=== PATIENT | female | born 1975 | race African-American/Black ===

== ENCOUNTER 2016-10-10 08:41 | Emergency (ER) | payer MEDICAID ==
[~2016-10-10] VITALS: Ht 162.6 cm; Wt 72.5 kg
[~2016-10-10 08:41] MED LIST: CLIN150 PO; LORTA5 PO; MMW SWISH-SWAL
[2016-10-10 08:44] VITALS: BP 121/80; PULSE 91; RESP 15; TEMP 99; O2SAT 99
[2016-10-10] MEDS ORDERED: AMOX500C PO (09:36)
[2016-10-10] MEDS ORDERED: IBUP800T23 PO (09:36)
--- NOTE | 2016-10-10 09:40 | PD ---
HPI Chief Complaint: Oral / Dental Pain or Problem Time Seen by Provider: 09:34 Travel History International Travel<30 days: No Contact w/Intl Traveler<30days: No Traveled to known affect area: No History of Present Illness HPI 41-year-old female presents to the emergency Department with complaint of sore throat 2 weeks and left lower dental pain 1 week. Denies fever, chills, nausea, vomiting. Denies cough, ear pain, nasal congestion. Denies lump in throat, difficulty swallowing, unusual drooling. Denies facial erythema, edema. Reports sore throat is worse at night and better throughout the day. Has taken Advil PM for symptom relief. Has not taken any other medications or tried any other treatments to alleviate her symptoms. Allergies to codeine. No other modifying factors or associated signs and symptoms. PFSH Past Medical History Cardiovascular Problems: Yes (HTN) Diminished Hearing: No LMP: 10/10/2016 : 5 Para: 2 Miscarriage: 3 : 3 Social History Alcohol Use: No Tobacco Use: No Substance Use: No Allergies-Medications (Allergen,Severity, Reaction): Coded Allergies: Codeine (Verified Adverse Reaction, Mild, VOMITING, 10/10/16) Reported Meds & Prescriptions Reported Meds & Active Scripts Active Ibuprofen 800 Mg Tab 800 Mg PO Q6HR PRN Amoxicillin 500 Mg Cap 500 Mg PO BID 10 Days Magic Mouthwash-Diphenhy Formula (Lidocaine/Diphenhydr/Alum/Mg/Simeth) Ml 5 Ml SWISH-SWAL EVERY 2 HOURS PRN MAGIC MOUTHWASH CONTAINS 1/3 VISCOUS LIDOCAINE, 1/3 MAALOX, AND 1/3 BENADRYL. Cleocin (Clindamycin HCl) 150 Mg Cap 300 Mg PO Q6 7 Days [place] 5-325 mg (Hydrocodone-Acetaminophen 5-325 mg) 5 mg/325 mg Tab 1 Tab PO Q6H PRN Review of Systems Except as stated in HPI: all other systems reviewed are Neg Physical Exam Narrative GENERAL: Well-nourished, well-developed female patient, in no acute distress; afebrile, nontoxic-appearing SKIN: Warm and dry. No rash. HEAD: Atraumatic. Normocephalic. No facial erythema, edema, tenderness on palpation. EYES: Pupils equal and round at 3 mm with brisk reaction. No scleral icterus. No injection or drainage. PERRLA. ENT: Mucosa pink and moist. No erythema or exudates. No uvular edema. No uvular , palatal, or tonsillar deviation. Airway patent. EARS: Bilateral pinnae and external canals appear within normal limits. Bilateral tympanic membranes without erythema, dullness or perforation. MOUTH: Mucous membranes moist, no lesions, tongue and gums appear normal. Left lower tooth #19 with tenderness on palpation; no dental caries noted; surrounding gingiva is without erythema, edema, drainage. No obvious abscess noted. NECK: Trachea midline. No lymphadenopathy. CARDIOVASCULAR: Regular rate. RESPIRATORY: No accessory muscle use. GASTROINTESTINAL: Rounded. MUSCULOSKELETAL: No obvious deformities. No clubbing. No cyanosis. No edema. NEUROLOGICAL: Awake and alert. Oriented 3. No obvious cranial nerve deficits. Motor grossly within normal limits. Normal speech. Moves all extremities. 5/5 strength to all extremities. PSYCHIATRIC: Appropriate mood and affect; insight and judgment normal. Data Data Last Documented VS Vital Signs Date Time Temp Pulse Resp B/P Pulse Ox O2 Delivery O2 Flow Rate FiO2 10/10/16 08:44 99.0 91 15 121/80 99 MDM Medical Decision Making Medical Screen Exam Complete: Yes Emergency Medical Condition: Yes Medical Record Reviewed: Yes Differential Diagnosis Viral pharyngitis, sore throat, dry throat, dentalgia, dental abscess; less likely peritonsillar abscess Narrative Course 41-year-old female with dentalgia to tooth #19 and sore throat 2 weeks. Oropharynx is unremarkable. Patient is afebrile and nontoxic-appearing. She denies fever, chills, nausea, vomiting. Denies lip throat, difficulty swallowing, unusual drooling. Emergency dental information sheet provided. Amoxicillin, ibuprofen prescribed for home. Instructed patient to follow up with dentist. Patient verbalizes understanding and agreement with treatment plan. Patient is medically cleared and stable for discharge. Discussed reasons to return to the emergency department. Instructed patient to follow up with primary care provider. Patient agrees with treatment plan. The patients vital signs are stable and the patient is stable for outpatient follow-up and treatment. Patient discharged home, stable and in no acute distress. Diagnosis Primary Impression: Dentalgia Additional Impression: Sore throat Referrals: Dentist Primary Care Physician Patient Instructions: Dental Abscess (ED), Dental Caries (ED), General Instructions, Toothache (ED) Departure Forms: Tests/Procedures, Work Release Enter return to work date: Oct 11, 2016 Additional Instructions: Complete full course of antibiotics Ibuprofen as directed and as needed to reduce pain and inflammation Warm compresses to the affected area Follow-up with dentist Follow-up with primary care provider Return to emergency department immediately with worsening of symptoms Take Antibiotics as prescribed and complete full course of antibiotics Get plenty of sleep/rest Rest your voice Drink plenty of fluids to prevent dehydration Use warm saltwater gargles to soothe throat pain Use an air humidifier/turn off ceiling fans Use throat lozenges as needed for sore throat Use ibuprofen or acetaminophen as needed to relieve pain and fever Follow-up with your primary care provider within 2-4 days Return immediately to the emergency department with worsening of symptoms Med/Other Pt SpecificInfo: Prescription(s) given Scripts Ibuprofen 800 Mg [id number] Mg PO Q6HR PRN (PAIN) #30 TAB Ref 0 Prov:Za Bustamante 10/10/16 Amoxicillin 500 Mg [id number] Mg PO BID 10 Days Ref 0 Prov:Za Bustamante 10/10/16 Disposition: 01 DISCHARGE HOME Condition: Stable Za Bustamante Oct 10, 2016 09:40
== END 2016-10-10 09:58 | disposition home or self-care (01) ==
LOC: NEPK 08:41
DX: K08.89 Other specified disorders of teeth and supporting structures (principal); J02.9 Acute pharyngitis, unspecified; I10 Essential (primary) hypertension
CPT/HCPCS: 99282

== ENCOUNTER 2017-04-06 10:48 | Emergency (ER) | payer MEDICAID ==
[~2017-04-06] VITALS: Ht 162.6 cm; Wt 76.0 kg
[~2017-04-06 10:48] MED LIST changes: +AMOX500C PO; +IBUP800T23 PO
[2017-04-06 10:52] VITALS: BP 135/84; PULSE 92; RESP 16; TEMP 98.8; O2SAT 99
[2017-04-06] MEDS ORDERED: AMOX500C PO (11:30)
[2017-04-06] MEDS ORDERED: IBUP800T23 PO (11:30)
[2017-04-06] MEDS ORDERED: PERI0.126 SWISH-SPIT (11:30)
--- NOTE | 2017-04-06 11:32 | PD ---
HPI Chief Complaint: Oral / Dental Pain or Problem Time Seen by Provider: 11:27 Travel History International Travel<30 days: No Contact w/Intl Traveler<30days: No Traveled to known affect area: No History of Present Illness HPI 41-year-old female presents to emergency Department with complaint of right upper dental pain 1 week. Denies fever, vomiting. Denies sore throat, difficulty swallowing, usual drooling. Has been taking ibuprofen and Tylenol for symptom management. Symptoms are mild in severity. Pain is aggravated with eating and drinking. Allergies to codeine. Has no other medical complaints. No other modifying factors or associated signs and symptoms. PFSH Past Medical History Cardiovascular Problems: Yes (HTN) Diminished Hearing: No ?: Unknown : 5 Para: 2 Miscarriage: 3 : 3 Social History Alcohol Use: No Tobacco Use: Yes Substance Use: No Allergies-Medications (Allergen,Severity, Reaction): Coded Allergies: codeine (Unverified Adverse Reaction, Mild, VOMITING, 04/06/17) Reported Meds & Prescriptions Reported Meds & Active Scripts Active Ibuprofen 800 Mg Tab 800 Mg PO Q6HR PRN Peridex Liq (Chlorhexidine Gluconate (Mouth) Liq) 0.12% Soln 15 Ml SWISH-SPIT BID 10 Days Amoxicillin 500 Mg Cap 500 Mg PO BID 10 Days Ibuprofen 800 Mg Tab 800 Mg PO Q6HR PRN Amoxicillin 500 Mg Cap 500 Mg PO BID 10 Days Magic Mouthwash-Diphenhy Formula (Lidocaine/Diphenhydr/Alum/Mg/Simeth) Ml 5 Ml SWISH-SWAL EVERY 2 HOURS PRN MAGIC MOUTHWASH CONTAINS 1/3 VISCOUS LIDOCAINE, 1/3 MAALOX, AND 1/3 BENADRYL. Cleocin (Clindamycin HCl) 150 Mg Cap 300 Mg PO Q6 7 Days [place] 5-325 mg (Hydrocodone-Acetaminophen 5-325 mg) 5 mg/325 mg Tab 1 Tab PO Q6H PRN Review of Systems Except as stated in HPI: all other systems reviewed are Neg Physical Exam Narrative GENERAL: Well-nourished, well-developed black female patient, in no acute distress; afebrile, nontoxic-appearing SKIN: Warm and dry. HEAD: Atraumatic. Normocephalic. No facial edema, erythema, tenderness on palpation. No lymphadenopathy. EYES: Pupils equal and round. No scleral icterus. No injection or drainage. ENT: Mucosa pink and moist. No erythema or exudates. No uvular edema. No uvular , palatal, or tonsillar deviation. Airway patent. EARS: Bilateral pinnae and external canals appear within normal limits. Bilateral tympanic membranes without erythema, dullness or perforation. MOUTH: Mucous membranes moist, no lesions, tongue and gums appear normal. Tooth #4 with tenderness on palpation; tooth with dental cavity noted. Surrounding gingiva is without erythema, edema, drainage. No obvious abscess noted. NECK: Trachea midline. No lymphadenopathy. CARDIOVASCULAR: Regular rate. RESPIRATORY: No accessory muscle use. GASTROINTESTINAL: Rounded. MUSCULOSKELETAL: No obvious deformities. No clubbing. No cyanosis. No edema. NEUROLOGICAL: Awake and alert. Oriented 3. No obvious cranial nerve deficits. Motor grossly within normal limits. Normal speech. PSYCHIATRIC: Appropriate mood and affect; insight and judgment normal. Data Data Last Documented VS Vital Signs Date Time Temp Pulse Resp B/P (MAP) Pulse Ox O2 Delivery O2 Flow Rate FiO2 04/06/17 10:52 98.8 92 16 135/84 (101) 99 Orders Orders Ed Discharge Order (04/06/17 11:33) MDM Medical Decision Making Medical Screen Exam Complete: Yes Emergency Medical Condition: Yes Medical Record Reviewed: Yes Differential Diagnosis dentalgia, dental cavity, gingivitis, dental abscess Narrative Course 41-year-old female physical exam consistent with dentalgia and dental cavity to tooth #4. No facial edema or erythema. Patient is afebrile and nontoxic- appearing. Amoxicillin, ibuprofen, Peridex mouth rinse prescribed for home. Emergency information dental sheet provider for follow-up. Instructed patient to follow up with dentist. Instructed patient to follow up with primary care provider. Patient verbalizes understanding and agreement with treatment plan. Patient is medically cleared and stable for discharge. Discussed reasons to return to the emergency department. Patient agrees with treatment plan. The patients vital signs are stable and the patient is stable for outpatient follow- up and treatment. Patient discharged home, stable and in no acute distress. Diagnosis Primary Impression: Dentalgia Additional Impression: Dental cavity Referrals: [facility] Dentist Primary Care Physician Patient Instructions: Dental Abscess (ED), Dental Caries (ED), General Instructions, Toothache (ED) Additional Instructions: Complete full course of antibiotics Ibuprofen or Tylenol as directed and as needed to reduce pain and inflammation Use Peridex as directed for oral hygiene Warm or cool compresses to the affected area Follow-up with dentist Follow-up with primary care provider Return to emergency department immediately with worsening of symptoms Med/Other Pt SpecificInfo: Prescription(s) given Scripts Ibuprofen (Ibuprofen) 800 Mg Tab 800 MG PO Q6HR Y for PAIN, #30 TAB 0 Refills Prov: Za Bustamante 04/06/17 Chlorhexidine Gluconate (Mouth) Liq (Peridex Liq) 0.12% Soln 15 ML SWISH-SPIT BID for 10 Days, #300 ML 0 Refills Prov: Za Bustamante 04/06/17 Amoxicillin (Amoxicillin) 500 Mg Cap 500 MG PO BID for Infection for 10 Days, #20 CAP 0 Refills Prov: Za Bustamante 04/06/17 Disposition: 01 DISCHARGE HOME Condition: Stable Za Bustamante Apr 06, 2017 11:32
== END 2017-04-06 11:46 | disposition home or self-care (01) ==
LOC: NEPK 10:48
DX: K08.89 Other specified disorders of teeth and supporting structures (principal); F17.200 Nicotine dependence, unspecified, uncomplicated; I10 Essential (primary) hypertension
CPT/HCPCS: 99283

== ENCOUNTER 2017-08-28 08:24 | Emergency (ER) | payer MEDICAID ==
[~2017-08-28] VITALS: Ht 167.6 cm; Wt 70.0 kg
[~2017-08-28 08:24] MED LIST changes: +IBUP1TAB7 PO; -IBUP800T23 PO; +PERI0.126 SWISH-SPIT
[2017-08-28 08:25] VITALS: BP 130/74; PULSE 77; RESP 15; TEMP 98.4; O2SAT 100
[2017-08-29] MEDS ORDERED: NAPR500T2 PO (09:39)
[2017-08-29] MEDS ORDERED: ORPH100T2 PO (09:39)
== END 2017-08-28 09:26 | disposition left against medical advice (07) ==
LOC: NED 08:24
DX: M54.9 Dorsalgia, unspecified (principal)
CPT/HCPCS: 99281

== ENCOUNTER 2017-08-29 09:12 | Emergency (ER) | payer MEDICAID ==
[~2017-08-29] VITALS: Ht 162.6 cm; Wt 72.0 kg
[2017-08-29 09:16] VITALS: BP 128/69; PULSE 77; RESP 18; TEMP 99.7; O2SAT 100
[2017-08-29] MEDS ORDERED: NAPR500T2 PO (09:39)
[2017-08-29] MEDS ORDERED: ORPH100T2 PO (09:39)
--- NOTE | 2017-08-29 10:26 | PD ---
HPI Chief Complaint: Back/ Neck Pain or Injury Time Seen by Provider: 09:53 Travel History International Travel<30 days: No Contact w/Intl Traveler<30days: No Traveled to known affect area: No History of Present Illness HPI Patient comes emergency department complaining of low back pain ongoing for 3 days. Patient reports that she picked up a crate when the pain began. Patient denies any trauma, loss change in bowel or bladder, fevers, numbness or tingling anywhere, , weakness, abdominal pain, chest pain, IV drug use , or radiation of her pain. Patient is requesting something stronger for pain. Patient states that she does not want to do a urine test or urine as she had this done yesterday. Patient that she was seen a different ER yesterday and started on naproxen and Flexeril that helps take the "edge off" but is not completely alleviating her pain and she is wanting something stronger. Patient denies any other complaints or concerns. History Past Medical Histgory LMP: 07/30/17 Social History Alcohol Use: No Tobacco Use: Yes Allergies-Medications (Allergen,Severity, Reaction): Coded Allergies: codeine (Unverified Adverse Reaction, Mild, VOMITING, 08/29/17) Reported Meds & Prescriptions Reported Meds & Active Scripts Active Reported Orphenadrine CR (Orphenadrine Citrate) 100 Mg Tab 100 Mg PO Q12HR Naproxen 500 Mg Tab 500 Mg PO BID Review of Systems Except as stated in HPI: all other systems reviewed are Neg Physical Exam Narrative GENERAL: Well-developed, overly nourished, in no acute distress, and non-ill appearing. SKIN: Focused skin assessment warm and dry. HEAD: Atraumatic. Normocephalic. EYES: Pupils equal and round. No scleral icterus. No injection or drainage. ENT: No nasal bleeding or discharge. Mucous membranes pink and moist. NECK: Trachea midline. Supple. No nuclear rigidity. CARDIOVASCULAR: Dorsal pulses 2+, intact, and equal bilaterally. RESPIRATORY: No accessory muscle use. No respiratory distress. GASTROINTESTINAL: Abdomen soft, non-tender, nondistended, and no guarding. Hepatic and splenic margins not palpable. No pulsatile mass. MUSCULOSKELETAL: No obvious deformities. No clubbing. No cyanosis. No edema. Full range of motion. Hip: FROM and equal BL with passive flexion, extension, Abduction, Adduction, and internal/external rotation. Pulses equal BL distal to injury. Capillary refill less than 2 seconds distal to injury and equal BL. FROM distal to injury and equal BL. Strength distal to injury equal BL. NV intact distal to injury and equal BL. Plantar flexion and dorsal flexion equal BL. Dorsal pulses equal BL. Sensation equal BL 1st web space. No tenderness or crepitus over midline of the lumbar spine. Patient reports point tenderness over right lateral lumbar muscles. Straight leg test negative bilaterally. NEUROLOGICAL: Awake and alert. No obvious cranial nerve deficits. Motor grossly within normal limits. Normal speech. PSYCHIATRIC: Appropriate mood and affect; insight and judgment normal. Data Data Last Documented VS Vital Signs Date Time Temp Pulse Resp B/P (MAP) Pulse Ox O2 Delivery O2 Flow Rate FiO2 08/29/17 09:16 99.7 77 18 128/69 (88) 100 MDM Medical Screen Exam Complete: Yes Emergency Medical Condition: No Narrative Course History and physical exam findings are not consistent with an emergent medical condition. She was given the option of receiving additional care, but has declined. Therefore the appropriate counseling recommendations were discussed with the patient and she was instructed to follow-up with her primary care physician as soon as possible for reevaluation. Patient was also informed of community resources from which she can obtain additional care. She is agreeable and verbalizes an understanding of the proposed plan. The patient states she will immediately return to the emergency department if her current complaints do not improve, new symptoms arise, or emergent condition develops. Patient ambulated out of the emergency department without difficulty. Primary Impression: Encounter for medical screening examination Disposition: [facility]-ED USE ONLY Condition: Stable Eddie Hines Aug 29, 2017 10:26
== END 2017-08-29 10:09 | disposition left against medical advice (07) ==
LOC: NEPK 09:12
DX: M54.5 Low back pain (principal); Z72.0 Tobacco use
CPT/HCPCS: 99281

== ENCOUNTER 2017-11-08 09:28 | Emergency (ER) | payer MEDICAID ==
[~2017-11-08 09:28] MED LIST changes: -AMOX500C PO; -CLIN150 PO; -IBUP1TAB7 PO; -LORTA5 PO; -MMW SWISH-SWAL; +NAPR500T2 PO; +ORPH100T2 PO; -PERI0.126 SWISH-SPIT
[2017-11-08 09:33] VITALS: BP 119/73; PULSE 83; RESP 16; TEMP 98.9; O2SAT 99
[2017-11-08] MEDS ORDERED: ORPHENADRINE INJ 60 MG/2 ML AMP IM ONE (10:00)
--- NOTE | 2017-11-08 10:17 | PD ---
HPI Chief Complaint: Back/ Neck Pain or Injury Time Seen by Provider: 09:51 Travel History International Travel<30 days: No Contact w/Intl Traveler<30days: No Traveled to known affect area: No History of Present Illness HPI 42-year-old female presents to the emergency department for evaluation of low back pain that has been going on for 2 days. She denies a traumatic injury. No fevers or chills. No loss of bowel or bladder control. No saddle anesthesias. She is ambulatory. She states the pain is worse with movement, alleviated with laying still. She took Aleve this morning. Patient currently rates the pain 6/10, aching and throbbing, without radiation. She has no medical problems and takes no prescribed medications. She denies any history of IV drug use. She denies any chance of . Mild severity PFSH Past Medical History Medical History: Denies Significant Hx Cardiovascular Problems: Yes (HTN) Diminished Hearing: No Tetanus Vaccination: Unknown Influenza Vaccination: No ?: Not LMP: 11/03/17 : 5 Para: 4 Miscarriage: 3 : 3 Past Surgical History Surgical History: No Previous Surgery Social History Alcohol Use: No Tobacco Use: No Substance Use: No Allergies-Medications (Allergen,Severity, Reaction): Coded Allergies: codeine (Unverified Adverse Reaction, Mild, VOMITING, 11/08/17) Reported Meds & Prescriptions Reported Meds & Active Scripts Active Reported Orphenadrine CR (Orphenadrine Citrate) 100 Mg Tab 100 Mg PO Q12HR Naproxen 500 Mg Tab 500 Mg PO BID Review of Systems Except as stated in HPI: all other systems reviewed are Neg Physical Exam Narrative GENERAL: Well-nourished, well-developed female patient, ambulatory. Afebrile. SKIN: Focused skin assessment warm/dry. HEAD: Normocephalic. Atraumatic EYES: No scleral icterus. No injection or drainage. NECK: Supple, trachea midline. No JVD or lymphadenopathy. CARDIOVASCULAR: Regular rate and rhythm without murmurs, gallops, or rubs. RESPIRATORY: Breath sounds equal bilaterally. No accessory muscle use. Lung sounds are clear to auscultation. GASTROINTESTINAL: Abdomen soft, non-tender, nondistended. MUSCULOSKELETAL: No cyanosis, or edema. BACK: Nontender without obvious deformity. No CVA tenderness. Data Data Last Documented VS Vital Signs Date Time Temp Pulse Resp B/P (MAP) Pulse Ox O2 Delivery O2 Flow Rate FiO2 11/08/17 10:09 16 11/08/17 09:33 98.9 83 119/73 (88) 99 Orders Orders Orphenadrine Inj (Norflex Inj) (11/08/17 10:00) MDM Medical Decision Making Medical Screen Exam Complete: Yes Emergency Medical Condition: Yes Medical Record Reviewed: Yes Differential Diagnosis Muscle strain versus muscle spasm versus herniated disc versus sciatica Narrative Course 42-year-old female presents to the emergency department for evaluation of low back pain for 2 days. No traumatic injury. No red flag symptoms. She appears well on exam. Patient took Aleve this morning. She is given Norflex 60 mg IM. She is to continue Aleve at home and will be given a prescription for Robaxin. She is to follow the primary care physician return here for any acute worsening of symptoms. The patient was discharged in stable condition with instructions, including return instructions and follow up instructions. Diagnosis Primary Impression: Low back pain Qualified Codes: M54.5 - Low back pain Referrals: Primary Care Physician call for appointment Patient Instructions: Acute Low Back Pain (ED), General Instructions Additional Instructions: Continue Aleve as needed for pain. Take Robaxin as directed as needed. Heating pad on low. Follow-up with a primary care physician. Return to the emergency department for any acute worsening of symptoms. Med/Other Pt SpecificInfo: Prescription(s) given Scripts Methocarbamol (Robaxin) 750 Mg Tab 750 MG PO TID Y for MUSCLE SPASM, #21 TAB 0 Refills Prov: Pretty Haas 11/08/17 Disposition: 01 DISCHARGE HOME Condition: Stable Pretty Haas November 08, 2017 10:17
[2017-11-08] MEDS ORDERED: ROBA750T PO (10:20)
== END 2017-11-08 10:35 | disposition home or self-care (01) ==
LOC: NEPK 09:28
DX: M54.5 Low back pain (principal)
CPT/HCPCS: 96372; 99283; J2360